=== PATIENT | male | born 1970 | race Caucasian/White ===

== ENCOUNTER 2016-11-20 19:58 | Emergency (ER) | payer MEDICAID ==
[2016-11-20] MEDS ORDERED: IOHEXOL 300MG/ML 100 ML VIAL ONE (20:54)
[2016-11-20 21:22] LABS: % BASOPHILS 0.2 % (0.0-2.0); % EOSINOPHILS 2.9 % (0.0-5.0); % LYMPHOCYTES 25.4 % (20.0-50.0); % MONOCYTES 7.1 % (2.0-10.0); % NEUTROPHILS 64.4 % (40.0-80.0); HEMATOCRIT 43.3 % (39.0-49.0); HEMOGLOBIN 15.2 gm/dL (13.2-17.3); MEAN CELL VOLUME 83.8 fl (80-99); MEAN CORPUSCULAR HEMOGLOBIN 29.4 pg (26.0-30.0); MEAN CORPUSCULAR HGB CONC 35.1 pg (28.0-36.0); MEAN PLATELET VOLUME 7.8 fl; NEUTROPHILE ABSOLUTE 5.9 Th/cmm (1.8-8.0); PLATELET COUNT 237 Th/cmm (150-400); RED BLOOD COUNT 5.16 Mil/cmm (4.30-5.70); RED CELL DISTRIBUTION WIDTH 12.4 % (11.5-20.0); WHITE BLOOD COUNT 9.1 Th/cmm (4.8-10.8)
--- NOTE | 2016-11-20 21:23 | ED Physician Chart ---
Chief Complaint/HPI - Patient Information Date Seen:: 11/20/16 Time Seen:: 20:16 Chief Complaint:: RIGHT EYE BLURRED VISION History of Present Illness:: THIS IS A 46 YO MALE IS CONCERNED ABOUT HIS RIGHT EYE VISUAL ACUITY DECREASE SUDDENLY TODAY. HE STATES THAT HE IS DIABETIC AND HAS HAD TROUBLE WITH THE LEFT EYE THAT CAUSE HIM TO HAVE DECREASE ACUITY AND TREATED WITH LASER WHICH DID NOT HELP. Allergies:: Allergies Allergy/AdvReac Type Severity Reaction Status Date / Time No Known Allergies Allergy Verified 11/20/16 20:11 Vitals:: Vital Signs - 8 hr 11/20/16 20:00 Temp 97.3 F HR 98 RR 18 BP 138/94 O2 Sat % 98 Historian:: Patient, Family Member (MOTHER) Review of Systems - Review of Systems General/Constitutional: No fever, No chills, No weight loss, No weakness, No diaphoresis, No edema, No loss of appetite Skin: No skin lesions, No rash, No bruising Head: No headache, No light-headedness Eyes: No loss of vision, No pain, No diplopia ENT: No earache, No nasal drainage, No sore throat, No tinnitus Neck: No neck pain, No swelling, No thyromegaly, No stiffness, No mass noted Cardio Vascular: No chest pain, No palpitations, No PND, No orthopnea, No edema Pulmonary: No SOB, No cough, No sputum, No wheezing GI: No nausea, No vomiting, No diarrhea, Pain, No melena, No hematochezia, No constipation, No hematemesis G/U: No dysuria, No frequency, No hematuria Musculoskeletal: No bone or joint pain, No back pain, No muscle pain Endocrine: No polyuria, No polydipsia Psychiatric: No prior psych history, No depression, No anxiety, No suicidal ideation Hematopoietic: No bruising, No lymphadenopathy Allergic/Immuno: No urticaria, No angioedema Neurological: No syncope, No focal symptoms, No weakness, No paresthesia, No headache, No seizure, No dizziness, No confusion, No vertigo Past Medical History - Past Medical History Obtainable: Yes Past Medical History: No significant medical hx Family History: None Social History: Non Smoker, No Alcohol, No Drug Use Surgical History: None Psychiatricy History: None Medication: Reviewed Physical Exam - Physical Examination General/Constitutional: Awake, Well-developed, well-nourished, Alert, No distress, GCS 15, Non-toxic appearing, Ambulatory Head: Atraumatic Eyes: Lids, conjuctiva normal, PERRL, EOMI Other Eyes comments:: VISUAL ACUITY IS DECREASED ON THE RIGHT EYE Skin: Nl inspection, No rash, No skin lesions, No ecchymosis, Well hydrated, No lymphadenopathy ENMT: External ears, nose nl, Nasal exam nl, Lips, teeth, gums nl Neck: Nontender, Full ROM w/o pain, No JVD, No nuchal rigidity, No bruit, No mass, No stridor Respiratory: Nl effort/Exclusion, Clear to Auscultation, No Wheeze/Rhonchi/Rales Cardio Vascular: RRR, No murmur, gallop, rubs, NL S1 S2 GI: No tenderness/rebounding/guarding, No organomegaly, No hernia, Normal BS's, Nondistended, No mass/bruits, No McBurney tenderness : No CVA tenderness Extremities: No tenderness or effusion, Full ROM, normal strength in all extremities, No edema, Normal digits & nails Neuro/Psych: Alert/oriented, DTR's symmetric, Normal sensory exam, Normal motor strength, Judgement/insight normal, Mood normal, Normal gait, No focal deficits Misc: normal gait, Normal back, No paraspinal tenderness Labs/Radiology/EKG Results - Lab Results Results: Abnormal Lab Results 11/20/16 11/20/16 11/20/16 21:11 21:11 21:11 WBC 9.1 RBC 5.16 Hgb 15.2 Hct 43.3 MCV 83.8 MCH 29.4 MCHC Differential 35.1 RDW 12.4 Plt Count 237 MPV 7.8 Neutrophils % 64.4 Lymphocytes % 25.4 Monocytes % 7.1 Eosinophils % 2.9 Basophils % 0.2 PTT (Actin FS) Sodium 133 L Potassium 4.1 Chloride 99 Carbon Dioxide 27.1 Anion Gap 11.0 BUN 20 Creatinine 0.7 Est GFR ( Amer) > 60.0 Est GFR (Non-Af Amer) > 60.0 BUN/Creatinine Ratio 28.6 Glucose 364 H Hemoglobin A1c % Calcium 9.7 Total Bilirubin 0.4 AST 17 ALT 25 Alkaline Phosphatase 99 Troponin I Total Protein 7.0 Albumin 4.2 Globulin 2.8 Albumin/Globulin Ratio 1.5 Triglycerides 726 H Cholesterol 181 LDL Cholesterol Direct 88 HDL Cholesterol 25 TSH 11/20/16 11/20/16 11/20/16 21:11 21:11 21:11 WBC RBC Hgb Hct MCV MCH MCHC Differential RDW Plt Count MPV Neutrophils % Lymphocytes % Monocytes % Eosinophils % Basophils % PTT (Actin FS) 27.3 Sodium Potassium Chloride Carbon Dioxide Anion Gap BUN Creatinine Est GFR ( Amer) Est GFR (Non-Af Amer) BUN/Creatinine Ratio Glucose Hemoglobin A1c % Calcium Total Bilirubin AST ALT Alkaline Phosphatase Troponin I < 0.01 L Total Protein Albumin Globulin Albumin/Globulin Ratio Triglycerides Cholesterol LDL Cholesterol Direct HDL Cholesterol TSH 3.68 11/20/16 21:11 WBC RBC Hgb Hct MCV MCH MCHC Differential RDW Plt Count MPV Neutrophils % Lymphocytes % Monocytes % Eosinophils % Basophils % PTT (Actin FS) Sodium Potassium Chloride Carbon Dioxide Anion Gap BUN Creatinine Est GFR ( Amer) Est GFR (Non-Af Amer) BUN/Creatinine Ratio Glucose Hemoglobin A1c % 7.9 H Calcium Total Bilirubin AST ALT Alkaline Phosphatase Troponin I Total Protein Albumin Globulin Albumin/Globulin Ratio Triglycerides Cholesterol LDL Cholesterol Direct HDL Cholesterol TSH - Radiology Results Results: CT SCAN OF THE BRAIN = NAD CT SCAN OF THE RIGHT EYE = NAD ED Septic Shock - . Is Septic Shock (SBP<90, OR Lactate>4 mmol\L) present?: No - <6hrs of presentation: Vital Signs: Vital Signs - 8 hr 11/20/16 20:00 Temp 97.3 F HR 98 RR 18 BP 138/94 O2 Sat % 98 Reassessment (Disposition) - Reassessment Reassessment Condition:: Unchanged - Diagnosis Diagnosis:: SINUSITIS DIABETIC RETINOPATHY - Aftercare/Follow up Instructions Aftercare/Follow-Up Instructions:: Counseled pt regarding lab results/diagnosis & need follow up, Refer to Discharge Instructions, Counseled pt & family regarding lab results/diagnosis & need follow up - Patient Disposition Discharge/Transfer:: Home Condition at Disposition:: Unchanged ED Discharge Plan - Patient Disposition Admit/Discharge/Transfer: PT DISCHARGED HOME Condition at Disposition: Unchanged
[2016-11-20 21:55] LABS: ALB/GLOB RATIO 1.5 (1.0-1.8); ALKALINE PHOSPHATASE 99 U/L (34-104); BILIRUBIN,TOTAL 0.4 mg/dL (0.3-1.0); BUN - UREA NITROGEN 20 mg/dL (7-25); BUN/CREATININE RATIO 28.6; CALCIUM SERUM 9.7 mg/dL (8.6-10.3); CARBON DIOXIDE 27.1 mEq/L (21.0-31.0); CHLORIDE 99 mEq/L (98-107); CHOLESTEROL 181 mg/dL (<200); CREATININE - SERUM 0.7 mg/dL (0.7-1.3); GLUCOSE 364 mg/dL (70-105); POTASSIUM SERUM 4.1 mEq/L (3.5-5.1); SGOT 17 U/L (13-39); SGPT/ALT 25 U/L (7-52); SODIUM SERUM 133 mEq/L (136-145); TRIGLYCERIDES 726 mg/dL (<150)
--- NOTE | 2016-11-21 10:02 | Diagnostic Imaging Report ---
History: Blurry vision Radiation dosage CT DI 20. [id number] Technique: Serial axial images were performed through the facial bones then reformatted in sagittal and coronal planes. Findings: Dense mucosal thickening in the right maxillary sinus and right ethmoid sinus. There is also mucosal thickening in the left maxillary sinus and left ethmoid sinus. Mucosal thickening in the right sphenoid sinus. The globes, optic nerves, extraocular muscles and lacrimal apparatuses are symmetrical in appearance. No inflammatory changes present in the soft tissues. No erosive changes of bone. Impression: No acute pathology in the orbits. Dense bilateral maxillary and ethmoid sinus disease right greater than left.
--- NOTE | 2016-11-21 10:05 | Diagnostic Imaging Report ---
CT brain INDICATION: Rule out bleed Technique: Serial axial images were performed from the skull base to the vertex using 5 mm slice thickness and interval. CTDI [id number] FINDINGS: Ventricles are enlarged due to central white matter volume loss. ..Cortical sulcal markings are prominent. There are no areas of hemorrhage or edema in the brain or brainstem. No extra-axial fluid collections. IMPRESSION: Mild atrophy. No acute intracranial pathology. Chronic bilateral ethmoid and maxillary sinus disease.
== END 2016-11-20 23:55 ==
LOC: ER 19:58
DX: J32.9 Chronic sinusitis, unspecified (principal); E11.319 Type 2 diabetes mellitus with unspecified diabetic retinopathy without macular edema
CPT/HCPCS: 99285; 96372; 70450; 70480; 84484; 36415; 84443; 85025; 85730; 83036; 80053; 80061; J0696; Q9967

== ENCOUNTER 2016-11-27 10:55 | Emergency (ER) | payer MEDICAID ==
[2016-11-27 11:15] VITALS: BP 135/71
[2016-11-27 11:25] LABS: % BASOPHILS 0.7 % (0.0-2.0); % EOSINOPHILS 4.3 % (0.0-5.0); % LYMPHOCYTES 30.5 % (20.0-50.0); % MONOCYTES 5.6 % (2.0-10.0); % NEUTROPHILS 58.9 % (40.0-80.0); HEMATOCRIT 43.5 % (39.0-49.0); HEMOGLOBIN 14.8 gm/dL (13.2-17.3); MEAN CELL VOLUME 85.1 fl (80-99); MEAN CORPUSCULAR HGB CONC 34.1 pg (28.0-36.0); MEAN PLATELET VOLUME 7.6 fl; NEUTROPHILE ABSOLUTE 4.2 Th/cmm (1.8-8.0); PLATELET COUNT 253 Th/cmm (150-400); RED BLOOD COUNT 5.11 Mil/cmm (4.30-5.70); RED CELL DISTRIBUTION WIDTH 12.1 % (11.5-20.0)
[2016-11-27 11:27] LABS: WHITE BLOOD COUNT 7.2 Th/cmm (4.8-10.8)
--- NOTE | 2016-11-27 11:34 | ED Physician Chart ---
Chief Complaint/HPI - Patient Information Date Seen:: 11/27/16 Time Seen:: 11:20 Chief Complaint:: INCREASE BLINDNESS History of Present Illness:: THIS IS A 46 YO MALE STROKE, DIABETIC, HYPERTENSIVE, BLIND PATIENT WAS SENT HERE FOR EVALUATION AND TREATMENT OF THE SUDDEN ONSET OF INCREASE BLINDNESS OVER THE PAST TEN DAYS. THE PATIENT HAS BEEN GETTING TREATMENT OF HIS EYES FOR BOTH EYE BECAUSE OF INCREASING BLINDNESS. THE PATIENT DENIES PAIN, SOB, NAUSEA OR VOMITING. Allergies:: Allergies Allergy/AdvReac Type Severity Reaction Status Date / Time No Known Allergies Allergy Verified 11/20/16 20:11 Vitals:: Vital Signs - 8 hr 11/27/16 11:15 Temp 98.2 F HR 94 RR 16 BP 135/71 O2 Sat % 98 Historian:: Patient, Medical Records Review:: Nurse's Note Reviewed, Transfer documents Reviewed Review of Systems - Review of Systems General/Constitutional: No fever, No chills, Weight loss, No weakness, No diaphoresis, No edema, No loss of appetite Skin: No skin lesions, No rash, No bruising Head: No headache, No light-headedness Eyes: Acuity change, No pain, No diplopia ENT: No earache, No nasal drainage, No sore throat, No tinnitus Neck: No neck pain, No swelling, No thyromegaly, No stiffness, No mass noted Cardio Vascular: No chest pain, No palpitations, No PND, No orthopnea, No edema Pulmonary: No SOB, No cough, No sputum, No wheezing GI: No nausea, No vomiting, No diarrhea, No pain, No melena, No hematochezia, No constipation, No hematemesis G/U: No dysuria, No frequency, No hematuria Musculoskeletal: No bone or joint pain, No back pain, No muscle pain Endocrine: No polyuria, No polydipsia Psychiatric: No prior psych history, No depression, No anxiety, No suicidal ideation Hematopoietic: No bruising, No lymphadenopathy Allergic/Immuno: No urticaria, No angioedema Neurological: No syncope, Focal symptoms, Weakness, No weakness, No paresthesia , No headache, No seizure, No dizziness, No confusion, No vertigo Past Medical History - Past Medical History Obtainable: Yes Past Medical History: HTN, DM, CVA/TIA, Other (BLINDNESS) Family History: None Social History: Non Smoker, No Alcohol, No Drug Use, Care Facility Surgical History: PEG/GTube, other (TRACH AND LASER SURGERY ON THE EYES) Psychiatricy History: None Medication: Reviewed Family Medical History - Family Member Mother History Unknown: Yes Grandmother Living Status: Hx Family Diabetes: Yes Physical Exam - Physical Examination General/Constitutional: Awake, Well-developed, well-nourished, Alert, No distress, GCS 15, Non-toxic appearing, Ambulatory Head: Atraumatic Eyes: Lids, conjuctiva normal, PERRL, EOMI Other Eyes comments:: POOR ACUITY AND CAN SEE TWO FINGERS WITH RIGHT EYE BUT NONE FROM THE LEFT EYE. Skin: Nl inspection, No rash, No skin lesions, No ecchymosis, Well hydrated, No lymphadenopathy ENMT: External ears, nose nl, Nasal exam nl, Lips, teeth, gums nl Neck: Nontender, Full ROM w/o pain, No JVD, No nuchal rigidity, No bruit, No mass, No stridor Respiratory: Nl effort/Exclusion, Clear to Auscultation, No Wheeze/Rhonchi/Rales Cardio Vascular: RRR, No murmur, gallop, rubs, NL S1 S2 GI: No tenderness/rebounding/guarding, No organomegaly, No hernia, Normal BS's, Nondistended, No mass/bruits, No McBurney tenderness : No CVA tenderness Extremities: No tenderness or effusion, Full ROM, normal strength in all extremities, No edema, Normal digits & nails Other Extremities comments:: MUSCLE WASTING OF ALL FOUR EXTREMITIES. Neuro/Psych: Alert/oriented, DTR's symmetric, Normal sensory exam, Normal motor strength, Judgement/insight normal, Mood normal Other Neuro/Psych comments:: THERE IS RIGHT SIDE PARTIAL PARALYSIS AND AMBULATE WITH A TOE LIFT SPLIT ON THE RIGHT LOWE EXTREMITY. Misc: normal gait, Normal back, No paraspinal tenderness Labs/Radiology/EKG Results - Lab Results Results: Abnormal Lab Results 11/27/16 11/27/16 11/27/16 11:15 11:15 11:15 WBC 7.2 D RBC 5.11 Hgb 14.8 Hct 43.5 MCV 85.1 MCH 29.0 MCHC Differential 34.1 RDW 12.1 Plt Count 253 MPV 7.6 Neutrophils % 58.9 Lymphocytes % 30.5 Monocytes % 5.6 Eosinophils % 4.3 Basophils % 0.7 PT 11.0 INR 1.06 PTT (Actin FS) 28.6 Sodium Potassium Chloride Carbon Dioxide Anion Gap BUN Creatinine Est GFR ( Amer) Est GFR (Non-Af Amer) BUN/Creatinine Ratio Glucose Calcium Total Bilirubin AST ALT Alkaline Phosphatase Troponin I Total Protein Albumin Globulin Albumin/Globulin Ratio Triglycerides 256 H Cholesterol 169 LDL Cholesterol Direct 92 HDL Cholesterol 32 Urine Source Urine Color Urine Clarity Urine pH Ur Specific [place] Urine Protein Urine Glucose (UA) Urine Ketones Urine Blood Urine Nitrate Urine Bilirubin Urine Urobilinogen Ur Leukocyte Esterase Urine RBC Urine WBC Ur Epithelial Cells Urine Bacteria Digoxin 11/27/16 11/27/16 11/27/16 11:15 11:15 11:15 WBC RBC Hgb Hct MCV MCH MCHC Differential RDW Plt Count MPV Neutrophils % Lymphocytes % Monocytes % Eosinophils % Basophils % PT INR PTT (Actin FS) Sodium 134 L Potassium 4.2 Chloride 101 Carbon Dioxide 29.9 Anion Gap 7.3 BUN 10 Creatinine 0.6 L Est GFR ( Amer) > 60.0 Est GFR (Non-Af Amer) > 60.0 BUN/Creatinine Ratio 16.7 Glucose 263 H Calcium 9.9 Total Bilirubin 0.9 AST 17 ALT 30 Alkaline Phosphatase 107 H Troponin I < 0.01 L Total Protein 7.6 Albumin 4.5 Globulin 3.1 Albumin/Globulin Ratio 1.5 Triglycerides Cholesterol LDL Cholesterol Direct HDL Cholesterol Urine Source CLEAN C Urine Color YELLOW Urine Clarity CLEAR Urine pH 7.0 Ur Specific [place] 1.010 Urine Protein NEGATIVE Urine Glucose (UA) NEGATIVE Urine Ketones NEGATIVE Urine Blood NEGATIVE Urine Nitrate NEGATIVE Urine Bilirubin NEGATIVE Urine Urobilinogen 0.2 Ur Leukocyte Esterase NEGATIVE Urine RBC NONE SEEN Urine WBC NONE SEEN Ur Epithelial Cells RARE Urine Bacteria OCCASIONAL Digoxin 11/27/16 11:15 WBC RBC Hgb Hct MCV MCH MCHC Differential RDW Plt Count MPV Neutrophils % Lymphocytes % Monocytes % Eosinophils % Basophils % PT INR PTT (Actin FS) Sodium Potassium Chloride Carbon Dioxide Anion Gap BUN Creatinine Est GFR ( Amer) Est GFR (Non-Af Amer) BUN/Creatinine Ratio Glucose Calcium Total Bilirubin AST ALT Alkaline Phosphatase Troponin I Total Protein Albumin Globulin Albumin/Globulin Ratio Triglycerides Cholesterol LDL Cholesterol Direct HDL Cholesterol Urine Source Urine Color Urine Clarity Urine pH Ur Specific [place] Urine Protein Urine Glucose (UA) Urine Ketones Urine Blood Urine Nitrate Urine Bilirubin Urine Urobilinogen Ur Leukocyte Esterase Urine RBC Urine WBC Ur Epithelial Cells Urine Bacteria Digoxin 0.5 L - Radiology Results Results: CHEST X-RAY = NAD - EKG Interpretations EKG Time:: 11:02 Rhythm: SINUS [place]: RIGHT Rate: 91 Assessment - Assessment General Assessment: THIS PATIENT STATES THAT HIS BLINDNESS IS INCREASING, HOWEVER HIS HEART CONDITION HAS CHANGED WITH INCREASING HEART RATE. HE IS CURRENTLY ON DIGOXIN, HOWEVER THE LEVEL IS LOW AND HE SHOULD BE EVALUATED BY A NEUROLOGIST. HE ALSO SHOULD BE DIGITALIZED. THE PATIENT HAS A DETACHED RETINA AND THERE AN OPTHALMOLOGIST WAS CONSULTED. DR. COY WAS GIVEN THE PATIENT'S STATUS AND HE WILL SEE THE PATIENT AT 0800 HRS AND ASK THAT WE GIVE THE HIS PERSONAL CELL NUMBER FOR CONTACTING HIM IN THE AM. ED Septic Shock - . Is Septic Shock (SBP<90, OR Lactate>4 mmol\L) present?: No - <6hrs of presentation: Vital Signs: Vital Signs - 8 hr 11/27/16 11:15 Temp 98.2 F HR 94 RR 16 BP 135/71 O2 Sat % 98 Reassessment (Disposition) - Reassessment Reassessment Condition:: Unchanged - Diagnosis Diagnosis:: INCREASE BLINDNESS TACHYCARDIA - Aftercare/Follow up Instructions Aftercare/Follow-Up Instructions:: Counseled pt regarding lab results/diagnosis & need follow up, Refer to Discharge Instructions, Counseled pt & family regarding lab results/diagnosis & need follow up - Patient Disposition Discharge/Transfer:: Home Condition at Disposition:: Unchanged
[2016-11-27 11:38] LABS: INR 1.06 (0.5-1.4)
[2016-11-27 11:42] LABS: ALB/GLOB RATIO 1.5 (1.0-1.8); ALKALINE PHOSPHATASE 107 U/L (34-104); ANION GAP 7.3 (7.0-16.0); BILIRUBIN,TOTAL 0.9 mg/dL (0.3-1.0); BUN - UREA NITROGEN 10 mg/dL (7-25); BUN/CREATININE RATIO 16.7; CALCIUM SERUM 9.9 mg/dL (8.6-10.3); CARBON DIOXIDE 29.9 mEq/L (21.0-31.0); CHLORIDE 101 mEq/L (98-107); CHOLESTEROL 169 mg/dL (<200); CREATININE - SERUM 0.6 mg/dL (0.7-1.3); GLUCOSE 263 mg/dL (70-105); POTASSIUM SERUM 4.2 mEq/L (3.5-5.1); SGOT 17 U/L (13-39); SGPT/ALT 30 U/L (7-52); SODIUM SERUM 134 mEq/L (136-145); TRIGLYCERIDES 256 mg/dL (<150)
[2016-11-27 11:50] LABS: URINE BILIRUBIN NEGATIVE (NEGATIVE); URINE BLOOD NEGATIVE (NEGATIVE); URINE COLOR YELLOW; URINE GLUCOSE (UA) NEGATIVE (NEGATIVE); URINE KETONE NEGATIVE (NEGATIVE); URINE PROTEIN NEGATIVE (NEGATIVE)
[2016-11-27 11:51] LABS: URINE UROBILINOGEN 0.2 E.U./dL (0.2 - 1.0)
[2016-11-27 11:59] LABS: URINE BACTERIA OCCASIONAL /hpf (NONE SEEN); URINE RBC NONE SEEN /hpf (0-5); URINE WBC NONE SEEN /hpf (0-5)
[2016-11-27 12:00] LABS: URINE EPITHELIAL CELLS RARE /lpf (FEW)
--- NOTE | 2016-11-27 13:46 | Diagnostic Imaging Report ---
Portable chest x-ray History: Hypertension Allowing for portable technique the heart size is normal. No focal pulmonary parenchymal processes. No hilar or mediastinal abnormalities. Impression: No acute abnormalities.
== END 2016-11-27 18:45 ==
LOC: ER 10:55
DX: H54.0 Blindness, both eyes (principal); R00.0 Tachycardia, unspecified; I10 Essential (primary) hypertension; E11.9 Type 2 diabetes mellitus without complications; Z86.73 Personal history of transient ischemic attack (TIA), and cerebral infarction without residual deficits; Z93.1 Gastrostomy status
CPT/HCPCS: 36415-UA; 71010-TC; 80053-TC; 80061-TC; 80162-TC; 81001-TC; 84443-TC; 84484-TC; 85025-TC; 85610-TC; 85730-TC; 86592-TC; 93005; 96374; J1160